=== PATIENT | male | born 1940 | race Caucasian/White ===

== ENCOUNTER 2016-08-11 20:14 | Emergency (ER) | payer OTHER ==
[~2016-08-11] VITALS: Ht 180.3 cm; Wt 89.3 kg
[~2016-08-11 20:14] MED LIST: AMOXICILLIN500 MG PO; FENOFIBRATE160 M1 PO; GABAPENTIN300 MG PO; NUVIGIL50 MG PO; ONDANSETRON ODT4 MG PO; PRAVASTATIN SOD40 MG PO; TAMSULOSIN HCL0.4 MG PO; TRAMADOL HCL50 MG PO; VENLAFAXINE HC100 MG PO
[2016-08-11 20:57] LABS: EOSINOPHIL (%) 1.4 % (0-5); EOSINOPHIL COUNT 0.1 K/uL (0-0.3); HEMATOCRIT 41.9 % (38.0-50.0); IMMATURE GRANULOCYTE (%) 0.4 % (0.0-0.7); INSTRUMENT ABS NEUTROPHIL CT 3.8 K/uL; LYMPHOCYTE COUNT 1.1 K/uL (1.0-2.8); MCH 30.6 PG (29.0-34.0); MCHC 33.2 G/DL (30.0-36.0); MCV 92.3 FL (86-99); MEAN PLAT.VOLUME 9.3 uM^3 (9.0-12.4); MONOCYTE (%) 10.5 % (3-12); MONOCYTE COUNT 0.6 K/uL (0-0.8); NEUTROPHIL (%) 67.6 % (45-76); NEUTROPHIL COUNT 3.8 K/uL (1.8-6.4); PLATELET COUNT 225 K/uL (156-360); RBC DIS.WIDTH-CV 12.7 % (11.8-14.6); RBC DIS.WIDTH-SD 43.2 % (39-53); RED BLOOD COUNT 4.54 M/uL (4.00-5.50); WHITE BLOOD COUNT 5.6 K/uL (4.1-10.2)
[2016-08-11 21:07] LABS: CHLORIDE 108 mEq/L (99-109); POTASSIUM 4.1 mEq/L (3.7-5.4); SODIUM 142 mEq/L (136-147)
[2016-08-11 21:09] LABS: GLUCOSE 103 mg/dL (70-99)
[2016-08-11 21:10] LABS: ANION GAP 9 MEQ/L (2-14)
[2016-08-11 21:11] LABS: TOTAL BILIRUBIN 0.4 mg/dL (0.0-1.0)
[2016-08-11 21:12] LABS: ALKALINE PHOSPHATASE 30 IU/L (3-129)
[2016-08-11 21:13] LABS: GFR ESTIMATE (CALCULATED) 57 mL/min/
[2016-08-11 21:14] LABS: UREA NITROGEN (BUN) 17 mg/dL (9-23)
[2016-08-11 21:16] LABS: LIPASE 13 U/L (1.0-51.0)
[2016-08-11 21:16] LABS: ADD MIUA? YES; BILIRUBIN NEGATIVE; BLOOD SMALL; COLOR YELLOW ((YELLOW)); GLUCOSE (STRIP) NEGATIVE; KETONES NEGATIVE; LEUKOCYTES NEGATIVE; NITRITE NEGATIVE; PROTEIN (STRIP) 30; SPECIFIC GRAVITY 1.017 (1.000-1.030); UROBILINOGEN 0.2 MG/DL (0.2-1.0)
[2016-08-11 21:20] LABS: BACTERIA NONE SEEN /HPF; EPITHELIAL CELLS RARE /HPF; MUCUS TRACE /LPF; UCUL ADDED? NO; WHITE BLOOD CELLS 0-5 /HPF (0-5)
[2016-08-11] MEDS ORDERED: ZOFRAN4 MG PO (22:22)
[2016-08-11 22:32] VITALS: BP 143/75
== END 2016-08-11 22:34 | disposition home or self-care (01) ==
LOC: EME 20:14
PROVIDERS: Emergency Medicine
DX: R10.9 Unspecified abdominal pain (principal); E78.5 Hyperlipidemia, unspecified; I25.2 Old myocardial infarction; K21.9 Gastro-esophageal reflux disease without esophagitis; G89.29 Other chronic pain; Z98.1 Arthrodesis status; Z96.651 Presence of right artificial knee joint
CPT/HCPCS: 74177; 80053; 81003; 83605; 83690; 85025; 99281; 99285; J2405; J7030

== ENCOUNTER 2017-10-28 03:41 | Inpatient (IN) | payer OTHER ==
[~2017-10-28] VITALS: Ht 180.3 cm; Wt 90.5 kg
[~2017-10-28 03:41] MED LIST changes: +ATIVAN1 MG PO; +EFFEXOR37.5 MG PO; +ZOFRAN4 MG PO
[2017-10-28 05:58] VITALS: BP 136/73
[2017-10-28 11:13] VITALS: BP 132/65
[2017-10-28 13:03] VITALS: BP 141/63
[2017-10-28 15:51] VITALS: BP 107/58
[2017-10-28 20:08] VITALS: BP 135/65
[2017-10-29 00:17] VITALS: BP 118/60
[2017-10-29 04:00] VITALS: BP 147/69
[2017-10-29] MEDS ORDERED: ENDOCET 5-3251 EACH PO (07:58)
[2017-10-29] MEDS ORDERED: ELIQUIS2.5 MG PO (07:58)
[2017-10-29 08:10] VITALS: BP 147/69
[2017-10-29 16:00] VITALS: BP 145/65
[2017-10-29 20:05] VITALS: BP 135/70
[2017-10-29 23:58] VITALS: BP 143/67
[2017-10-30 04:19] VITALS: BP 126/69
[2017-10-30 08:20] VITALS: BP 117/58
[2017-10-30 12:30] VITALS: BP 119/61
== END 2017-10-30 14:36 | DRG 470 ==
LOC: ENRESERV 03:41 → 3WEST 05:26 → 2SOUTH 05:26 → 3WEST 10:57 → 2SOUTH 12:19 → 3WEST 10-30 14:36
PROC: 0SRD0J9 Replacement of Left Knee Joint with Synthetic Substitute, Cemented, Open Approach (ICD-10-PCS; principal; 2017-10-28)
DX: M17.12 Unilateral primary osteoarthritis, left knee (principal); M47.16 Other spondylosis with myelopathy, lumbar region; E78.00 Pure hypercholesterolemia, unspecified; E78.1 Pure hyperglyceridemia; N40.0 Benign prostatic hyperplasia without lower urinary tract symptoms; E78.5 Hyperlipidemia, unspecified; I25.10 Atherosclerotic heart disease of native coronary artery without angina pectoris; M48.02 Spinal stenosis, cervical region; R53.82 Chronic fatigue, unspecified; N18.3 Chronic kidney disease, stage 3 (moderate); M48.061 Spinal stenosis, lumbar region without neurogenic claudication; R31.29 Other microscopic hematuria; E66.3 Overweight; G47.30 Sleep apnea, unspecified; I25.2 Old myocardial infarction; Z79.82 Long term (current) use of aspirin; Z87.891 Personal history of nicotine dependence; Z90.49 Acquired absence of other specified parts of digestive tract; Z68.27 Body mass index [BMI] 27.0-27.9, adult; Z83.3 Family history of diabetes mellitus
CPT/HCPCS: C1713; J0131; J0330; J0690; J1100; J1885; J2250; J2405; J2710; J2795; J3010; J7050; J7120; J7643

== ENCOUNTER 2017-11-05 18:35 | Inpatient (IN) | payer OTHER ==
[~2017-11-05] VITALS: Ht 180.3 cm; Wt 101.0 kg
[~2017-11-05 18:35] MED LIST changes: +ELIQUIS2.5 MG PO; +ENDOCET 5-3251 EACH PO
[2017-11-05 19:19] LABS: HEMATOCRIT 29.1 % (38.0-50.0); MCH 29.9 PG (29.0-34.0); MCHC 33.3 G/DL (30.0-36.0); MCV 89.8 FL (86-99); RBC DIS.WIDTH-CV 14.3 % (11.8-14.6); RED BLOOD COUNT 3.24 M/uL (4.00-5.50); WHITE BLOOD COUNT 8.6 K/uL (4.1-10.2)
[2017-11-05 19:21] LABS: HEMOGLOBIN 9.7 G/DL (12.5-16.6); PLATELET COUNT 357 K/uL (156-360)
[2017-11-05 19:37] LABS: ALBUMIN 3.7 g/dL (3.2-4.8); CHLORIDE 104 mEq/L (99-109); POTASSIUM 5.2 mEq/L (3.7-5.4); SODIUM 136 mEq/L (136-147)
[2017-11-05 19:40] LABS: GLUCOSE 108 mg/dL (70-99); TOTAL PROTEIN 6.9 g/dL (6.4-8.3)
[2017-11-05 19:42] LABS: TOTAL BILIRUBIN 0.8 mg/dL (0.0-1.0)
[2017-11-05 19:43] LABS: ALKALINE PHOSPHATASE 48 IU/L (3-129); GFR ESTIMATE (CALCULATED) 35 mL/min/ (58.99-99999)
[2017-11-05 19:44] LABS: UREA NITROGEN (BUN) 39 mg/dL (9-23)
[2017-11-05 19:45] LABS: AST (GOT) 26 IU/L (2-34)
[2017-11-05 19:46] LABS: ALT (GPT) 22 IU/L (3-49)
[2017-11-05 19:50] LABS: APPEARANCE CLEAR ((CLEAR)); BILIRUBIN NEGATIVE; BLOOD MODERATE; COLOR YELLOW ((YELLOW)); GLUCOSE (STRIP) NEGATIVE; KETONES NEGATIVE; LEUKOCYTES MODERATE; NITRITE NEGATIVE; PROTEIN (STRIP) NEGATIVE; SPECIFIC GRAVITY 1.014 (1.000-1.030); UROBILINOGEN 0.2 MG/DL (0.2-1.0)
[2017-11-05 20:01] LABS: BACTERIA NONE SEEN /HPF; EPITHELIAL CELLS NONE SEEN /HPF; MUCUS NONE SEEN /LPF; UCUL ADDED? YES; WHITE BLOOD CELLS 15-20 /HPF (0-5)
[2017-11-06] MEDS ORDERED: TRAMADOL HCL50 MG PO (00:36)
[2017-11-06 03:15] VITALS: BP 147/70
[2017-11-06 05:56] LABS: HEMATOCRIT 27.3 % (38.0-50.0); HEMOGLOBIN 8.9 G/DL (12.5-16.6); MCH 29.6 PG (29.0-34.0); MCHC 32.6 G/DL (30.0-36.0); MCV 90.7 FL (86-99); PLATELET COUNT 338 K/uL (156-360); RBC DIS.WIDTH-CV 14.1 % (11.8-14.6); RBC DIS.WIDTH-SD 47.6 % (39-53); RED BLOOD COUNT 3.01 M/uL (4.00-5.50); WHITE BLOOD COUNT 8.2 K/uL (4.1-10.2)
[2017-11-06 07:35] LABS: CHLORIDE 105 MEQ/L (99-109); CREATININE 1.9 MG/DL (0.6-1.3); GFR ESTIMATE (CALCULATED) 37 mL/min/ (58.99-99999); GLUCOSE 104 mg/dL (70-99); POTASSIUM 4.9 MEQ/L (3.7-5.4); SODIUM 135 MEQ/L (136-147); UREA NITROGEN (BUN) 37 mg/dL (9-23)
[2017-11-06 08:19] VITALS: BP 156/74
[2017-11-06 12:13] VITALS: BP 149/79
[2017-11-06 16:05] VITALS: BP 109/71
[2017-11-06 20:23] VITALS: BP 121/59
[2017-11-06 23:23] VITALS: BP 119/58
[2017-11-07 04:43] VITALS: BP 119/59
[2017-11-07 06:37] LABS: BASOPHIL (%) 0.7 % (0-1); EOSINOPHIL (%) 3.7 % (0-5); EOSINOPHIL COUNT 0.2 K/uL (0-0.3); HEMATOCRIT 25.7 % (38.0-50.0); HEMOGLOBIN 8.4 G/DL (12.5-16.6); IMMATURE GRANULOCYTE (%) 4.2 % (0.0-0.7); LYMPHOCYTE (%) 19.7 % (15-42); LYMPHOCYTE COUNT 1.2 K/uL (1.0-2.8); MCHC 32.7 G/DL (30.0-36.0); MCV 91.8 FL (86-99); MONOCYTE (%) 12.8 % (3-12); MONOCYTE COUNT 0.8 K/uL (0-0.8); NEUTROPHIL (%) 58.9 % (45-76); NEUTROPHIL COUNT 3.6 K/uL (1.8-6.4); NRBC (%) 0.7 /100 WBC (0-0); PLATELET COUNT 305 K/uL (156-360); RBC DIS.WIDTH-SD 47.7 % (39-53); WHITE BLOOD COUNT 6.2 K/uL (4.1-10.2)
[2017-11-07 07:00] LABS: CHLORIDE 106 MEQ/L (99-109); GFR ESTIMATE (CALCULATED) 52 mL/min/ (58.99-99999); GLUCOSE 99 mg/dL (70-99); POTASSIUM 5.1 MEQ/L (3.7-5.4); SODIUM 137 MEQ/L (136-147); UREA NITROGEN (BUN) 29 mg/dL (9-23)
[2017-11-07 07:02] LABS: CREATININE 1.4 MG/DL (0.6-1.3)
[2017-11-07 08:39] VITALS: BP 117/61
[2017-11-07 11:26] VITALS: BP 99/54
[2017-11-07 17:02] VITALS: BP 123/62
[2017-11-07 19:57] VITALS: BP 125/65
[2017-11-07 23:30] VITALS: BP 139/65
[2017-11-08 07:51] VITALS: BP 124/58
[2017-11-08 11:43] VITALS: BP 125/68
[2017-11-08] MEDS ORDERED: KEFLEX500 MG PO (12:43)
== END 2017-11-08 15:00 | disposition home health service (06) | DRG 690 ==
LOC: EME 18:35 → RME 18:35 → 3EAST 11-06 01:01 → EDOF 11-06 01:01 → ENRESERV 11-06 01:03 → 3EAST 11-06 02:39
PROVIDERS: Internal Medicine
DX: N13.6 Pyonephrosis (principal); N17.9 Acute kidney failure, unspecified; D64.9 Anemia, unspecified; N32.0 Bladder-neck obstruction; Z96.653 Presence of artificial knee joint, bilateral; E78.5 Hyperlipidemia, unspecified; E78.1 Pure hyperglyceridemia; N40.1 Benign prostatic hyperplasia with lower urinary tract symptoms; K21.9 Gastro-esophageal reflux disease without esophagitis; N18.9 Chronic kidney disease, unspecified; K59.03 Drug induced constipation; T40.605A Adverse effect of unspecified narcotics, initial encounter; I25.2 Old myocardial infarction
CPT/HCPCS: 74176; 80048; 80053; 81003; 82272; 83605; 83690; 85025; 85027; 86850; 86900; 86901; 87040; 87086; 93005; 99281; 99285; J0696; J7030

== ENCOUNTER 2017-11-15 17:31 | Emergency (ER) | payer OTHER ==
[~2017-11-15] VITALS: Ht 180.3 cm; Wt 86.0 kg
[~2017-11-15 17:31] MED LIST changes: +KEFLEX500 MG PO
[2017-11-15 20:02] VITALS: BP 120/75
== END 2017-11-15 20:04 | disposition home or self-care (01) ==
LOC: EME 17:31
PROC: 0T9B70Z Drainage of Bladder with Drainage Device, Via Natural or Artificial Opening (ICD-10-PCS; principal; 2017-11-15)
DX: R33.9 Retention of urine, unspecified (principal); E78.5 Hyperlipidemia, unspecified; K21.9 Gastro-esophageal reflux disease without esophagitis; F32.9 Major depressive disorder, single episode, unspecified; I25.2 Old myocardial infarction; Z87.891 Personal history of nicotine dependence; Z95.9 Presence of cardiac and vascular implant and graft, unspecified; Z96.653 Presence of artificial knee joint, bilateral; Z98.1 Arthrodesis status; Z90.49 Acquired absence of other specified parts of digestive tract
CPT/HCPCS: 99281; 99284